=== PATIENT | male | born 1995 | race Caucasian/White ===

== ENCOUNTER 2019-02-20 11:25 | Emergency (ER) | payer OTHER ==
[~2019-02-20] VITALS: Ht 177.8 cm; Wt 104.3 kg
--- NOTE | 2019-02-20 11:25 | NUR ---
Patient transferred to bed 8 via wheelchair by triage nurse. RN and RT evaluating patient at bedside.
--- NOTE | 2019-02-20 11:27 | NUR ---
Dr. Little is evaluating the patient at bedside.
[2019-02-20 11:29] VITALS: BP 140/102
[2019-02-20] MEDS ORDERED: methylPREDNISolone SS 125 MG/2 ML VIAL IVP ONE (11:30)
[2019-02-20] MEDS ORDERED: IPRATROPIUM 0.02% 0.5 MG/2.5 ML NEBU INH ONE (11:30)
[2019-02-20] MEDS ORDERED: MAG SULF 2000 MG/WATER PREMIX 50 ML IV ONE (11:30)
[2019-02-20] MEDS ORDERED: ALBUTEROL 0.083% 2.5 MG/3 ML NEBU INH ONE (11:30)
[2019-02-20] MEDS ORDERED: NACL 0.9% 500 ML IV ONE (11:35)
--- NOTE | 2019-02-20 11:35 | NUR ---
Breathing treatment administered by respiratory therapist at bedside.
[2019-02-20 11:49] LABS: BASOPHILS % (AUTO) 0.6 % (0.0-2.0); EOSINOPHILS # (AUTO) 0.4 K/uL (0-0.4); EOSINOPHILS % (AUTO) 5.9 % (0.0-4.0); HEMATOCRIT 48.4 % (36-52); HEMOGLOBIN 16.3 g/dL (12.0-18.0); LYMPHOCYTES # (AUTO) 2.6 K/uL (2.0-11.5); LYMPHOCYTES % (AUTO) 34.6 % (20.5-51.1); MEAN CORPUSCULAR HEMOGLOBIN 31 pg (27-31); MEAN CORPUSCULAR HGB CONC 34 g/dL (33-37); MEAN CORPUSCULAR VOLUME 90.9 fL (80-94); MONOCYTES # (AUTO) 0.3 K/uL (0.8-1.0); MONOCYTES % (AUTO) 4.7 % (1.7-9.3); NEUTROPHILS % (AUTO) 54.2 % (42.2-75.2); PLATELET COUNT (AUTO) 285 K/uL (140-450); RED BLOOD CELL COUNT(AUTO) 5.33 MIL/uL (4.20-6.10); WHITE BLOOD COUNT (AUTO) 7.4 K/uL (4.8-10.8)
[2019-02-20 12:08] LABS: ANION GAP 17.6 (8-16); CREATININE 0.9 mg/dL (0.7-1.3); POTASSIUM 3.6 mmol/L (3.5-5.1)
[2019-02-20 12:13] LABS: ALBUMIN 4.6 g/dL (3.4-5.0)
--- NOTE | 2019-02-20 12:17 | NUR ---
C/O SOB X 2 HOURS PATIENT REPORTED FEELING SOB AT WORK, USED ALBUTEROL INHALER AND EXPERIENCED NO RELIEF. CHEST TIGHTNESS BEGAN TO WORSEN. PMH: ASTHMA MEDS: ALBUTEROL, SOLUMEDROL
--- NOTE | 2019-02-20 12:29 | NUR ---
PATIENT IS STABLE, FAMILY AT BEDSIDE. AMBULATED TO BATHROOM TO PROVIDE URINE SAMPLE
--- NOTE | 2019-02-20 12:52 | NUR ---
Dr. Little is re-evaluating the patient at bedside.
[2019-02-20 13:30] LABS: APPEARANCE,URINE CLEAR (CLEAR); BILIRUBIN,URINE NEGATIVE (NEGATIVE); BLOOD, URINE NEGATIVE (NEGATIVE); COLOR,URINE YELLOW (YELLOW); LEUKOCYTE ESTERASE ,URINE NEGATIVE (NEGATIVE); NITRITE, URINE NEGATIVE (NEGATIVE); UGLUCOSE NEGATIVE (NEGATIVE)
[2019-02-20 14:41] VITALS: BP 127/79
--- NOTE | 2019-02-20 14:42 | NUR ---
Patient discharged with v/s stable. Written and verbal after care instructions given and explained. Patient alert, oriented and verbalized understanding of instructions. Ambulatory with steady gait. All questions addressed prior to discharge. ID band removed. Patient advised to follow up with PMD. Rx of PREDNISONE, ALBUTEROL given. Patient educated on indication of medication including possible reaction and side effects. Opportunity to ask questions provided and answered.
== END 2019-02-20 14:42 | disposition home or self-care (01) ==
LOC: MED 11:25
DX: J45.901 Unspecified asthma with (acute) exacerbation (principal); R00.0 Tachycardia, unspecified
CPT/HCPCS: 36415; 71045; 80053; 81003; 83880; 84484; 85025; 93005; 94640; 96365; 96375; 99284; J2930; J3475; J7030; J7613; J7644; Q0092